=== PATIENT | male | born 1945 | race Caucasian/White ===

== ENCOUNTER 2017-04-01 15:47 | Inpatient (IN) | payer OTHER, SELFPAY ==
[~2017-04-01] VITALS: Ht 180.3 cm; Wt 89.4 kg
[~2017-04-01 15:47] MED LIST: ASPIRIN81 M2 PO; ATORVASTATIN CA40 MG PO; AZITHROMYCIN 2250 MG PO; BACTRIM DS TAB1 EACH PO; CARVEDILOL12.5 MG PO; CEFDINIR300 MG PO; FLAGYL500 MG PO; FLEXERIL PO; HYDROCHLOROTHIA25 M1 PO; LOPRESSOR50 PO; MINOCIN100 MG PO; PREDNISONE 10 M10 MG PO; PRINIVIL20 MG PO; SIMVASTATIN40 MG PO; TRAMADOL 50 MG50 MG PO; VENTOLIN HFA 1818 GM INH; ZESTORETIC 20-1 EAC3 PO
[2017-04-01 15:53] VITALS: BP 151/76
[2017-04-01 16:19] LABS: ABSOLUTE BASOPHILS 0.1 thou/uL (0.0-0.2); ABSOLUTE EOSINOPHILS 0.4 thou/uL (0.0-0.7); ABSOLUTE LYMPHOCYTES 2.2 thou/uL (0.8-5.3); ABSOLUTE MONOCYTES 1.1 thou/uL (0.0-1.2); ABSOLUTE NEUTROPHILS 7.8 thou/uL (1.6-8.1); BASOPHILS 1.2 %; EOSINOPHILS 3.3 %; HEMATOCRIT 40.8 % (42.0-52.0); HEMOGLOBIN 13.4 gm/dL (14.0-18.0); LYMPHOCYTES 18.7 %; MCH 30.7 pg (26.0-34.0); MCHC 32.7 g/dL (28.0-37.0); MCV 93.9 fL (80.0-100.0); MONOCYTES 9.7 %; MPV 8.6 fl. (7.2-11.1); NUCLEATED RBCS 0 /100WBC; PLATELET COUNT* 282 thou/uL (150-400); POLYS 67.1 %; RBC 4.35 mil/uL (4.50-6.00); RDW-CV 13.2 % (10.5-14.5); WBC 11.6 thou/uL (4.0-11.0)
[2017-04-01 16:28] LABS: ANION GAP 2 mmol/L (7-16); APTT 27.3 Seconds (25.0-31.3); BUN 21 mg/dL (7-18); CALCIUM 9.5 mg/dL (8.5-10.1); CHLORIDE 104 mmol/L (98-107); CO2 38 mmol/L (21-32); CREATININE 0.8 mg/dL (0.6-1.3); GLUCOSE 111 mg/dL (70-99); INR 1.1; POTASSIUM 3.8 mmol/L (3.5-5.1); PROTIME 10.7 Seconds (9.20-11.50); SODIUM 144 mmol/L (136-145)
[2017-04-01 16:39] LABS: ALBUMIN 3.3 g/dL (3.4-5.0); ALKALINE PHOSPHATASE 61 U/L (46-116); LIPASE 195 U/L (73-393); MAGNESIUM 1.8 mg/dL (1.8-2.4); NT-PRO BRAIN NAT PEPTIDE 178 pg/mL (<300); SGOT 35 U/L (15-37); SGPT 39 U/L (30-65); TOTAL BILIRUBIN 0.3 mg/dL (<0.1-1.0); TOTAL PROTEIN 6.9 g/dL (6.4-8.2); TROPONIN-I LEVEL <0.06 ng/mL (<0.06)
[2017-04-01 17:25] VITALS: BP 138/69
[2017-04-01 17:30] VITALS: BP 160/59
[2017-04-02 00:04] VITALS: BP 112/48
[2017-04-02 03:56] VITALS: BP 133/67
[2017-04-02 04:20] LABS: HEMATOCRIT 40.4 % (42.0-52.0); HEMOGLOBIN 13.6 gm/dL (14.0-18.0); MCH 31.6 pg (26.0-34.0); MCHC 33.7 g/dL (28.0-37.0); MCV 93.7 fL (80.0-100.0); NUCLEATED RBCS 0 /100WBC; PLATELET COUNT* 272 thou/uL (150-400); RBC 4.31 mil/uL (4.50-6.00); RDW-CV 13.1 % (10.5-14.5); WBC 8.9 thou/uL (4.0-11.0)
[2017-04-02 04:32] LABS: CALCIUM 9.1 mg/dL (8.5-10.1); CREATININE 0.8 mg/dL (0.6-1.3); POTASSIUM 4.5 mmol/L (3.5-5.1)
--- NOTE | 2017-04-02 05:35 | NUR ---
PATIENT SLEPT WELL DURING THIS SHIFT. PT UP TO BATHROOM WITH SLOW STEADY GAIT. PT WEARS O2 @ 2 LITERS PER NASAL CANNULA. PT WITH SALINE LOCK IN RT AC. PT IN NORMAL SINUS ON STOCK CRANE OPERATOR. PT DENIES PAIN ON THIS SHIFT. FREQUENTLY USED ITEMS AND CALL LIGHT WITHIN REACH. SIDERAILS UPX2. WILL CONTINUE TO MONITOR.
[2017-04-02 06:05] LABS: ABSOLUTE LYMPHOCYTES 1.1 thou/uL (0.8-5.3); ABSOLUTE MONOCYTES 0.1 thou/uL (0.0-1.2); ABSOLUTE NEUTROPHILS 7.7 thou/uL (1.6-8.1); LARGE PLATELETS OCCASIONAL; PLATELET ESTIMATE ADEQUATE
[2017-04-02 08:00] VITALS: BP 160/69
[2017-04-02 12:09] VITALS: BP 125/66
--- NOTE | 2017-04-02 12:11 | EKG ---
[place] [address] ELECTROCARDIOGRAM REPORT Name: LYDIA DAY Room: [address] ADM IN .R.#: [id number] Admission: 04/01/17 Attend Phys: Sveta Crystal Discharge: Date of : 41 Report #: [id number] THIS REPORT FOR: //name// [facility] ED Test Date: 2017-04-01 Test Time: 16:15:22 Pat Name: LYDIA DAY Department: Room: [facility] Gender: M Crimper Assembler: LEXUS : 1945 Requested By: Deep Rubio Order Number: [id number] MD: Arik Harris Measurements Intervals [place] Rate: 64 P: 15 AL: 198 QRS: -45 QRSD: 101 T: 60 QT: 401 QTc: 414 Interpretive Statements Sinus rhythm Left anterior fascicular block Anteroseptal infarct, age indeterminate ST elevation, consider inferior injury Lateral leads are also involved Compared to ECG 12/16/2016 17:20:48 Myocardial infarct finding now present Sinus bradycardia no longer present ST (T wave) deviation still present Electronically Signed On 04-02-2017 12:11:02 AUTOMOBILE LIGHTS ASSEMBLER by Arik Harris [email or web address] <ELECTRONICALLY SIGNED> By: Arik Harris MD, FACC 04/02/17 1211 1615 1615 Arik Harris MD, [facility] /EPI
--- NOTE | 2017-04-02 12:11 | EKG ---
[place] [address] ELECTROCARDIOGRAM REPORT Name: LYDIA DAY Room: [address] ADM IN .R.#: [id number] Admission: 04/01/17 Attend Phys: Sveta Crystal Discharge: Date of : 41 Report #: [id number] THIS REPORT FOR: //name// [facility] ED Test Date: 2017-04-01 Test Time: 15:53:36 Pat Name: LYDIA DAY Department: Room: [facility] Gender: M Solid Tire Finisher: SHAW : 1945 Requested By: Deep Rubio Order Number: [id number] MD: Arik Harris Measurements Intervals [place] Rate: 67 P: 10 FL: 219 QRS: -46 QRSD: 99 T: 60 QT: 390 QTc: 412 Interpretive Statements Sinus rhythm Borderline prolonged FL interval Left anterior fascicular block ST elevation, consider inferior injury Compared to ECG 12/16/2016 17:20:48 Myocardial infarct finding now present Sinus bradycardia no longer present ST (T wave) deviation still present Electronically Signed On 04-02-2017 12:10:47 HOUSING ASSISTANT by Arik Harris [email or web address] <ELECTRONICALLY SIGNED> By: Airk Harris MD, FACC 04/02/17 1210 1553 1553 Arik Harris MD, FAC /EPI
[2017-04-02 16:00] VITALS: BP 122/59
[2017-04-03 00:28] VITALS: BP 131/57
[2017-04-03 04:03] VITALS: BP 142/69
[2017-04-03 05:11] LABS: HEMATOCRIT 38.1 % (42.0-52.0); HEMOGLOBIN 12.8 gm/dL (14.0-18.0); MCH 31.5 pg (26.0-34.0); MCHC 33.7 g/dL (28.0-37.0); MCV 93.5 fL (80.0-100.0); MPV 9.4 fl. (7.2-11.1); NUCLEATED RBCS 0 /100WBC; PLATELET COUNT* 288 thou/uL (150-400); RBC 4.07 mil/uL (4.50-6.00); RDW-CV 13.1 % (10.5-14.5)
[2017-04-03 05:28] LABS: CALCIUM 8.9 mg/dL (8.5-10.1); POTASSIUM 4.5 mmol/L (3.5-5.1)
[2017-04-03 06:17] LABS: WBC 24.1 thou/uL (4.0-11.0)
[2017-04-03 07:01] LABS: ABSOLUTE LYMPHOCYTES 1.7 thou/uL (0.8-5.3); ABSOLUTE MONOCYTES 0.5 thou/uL (0.0-1.2); ABSOLUTE NEUTROPHILS 21.9 thou/uL (1.6-8.1); PLATELET ESTIMATE ADEQUATE
[2017-04-03 11:40] VITALS: BP 124/55
[2017-04-03 15:00] VITALS: BP 123/46
--- NOTE | 2017-04-03 18:56 | NUR ---
OXYGEN INCREASED TO 4LNC TO KEEP SATS ABOVE 90%. BRET IV BOLUS AND IV ABT WITHOUT ADR. UP AD KUMAR, DENIES DISCOMFORT, COMPLIANT WITH CARE, XR CHEST COMPLETE, CALL LIGHT IN REACH, CONT POC.
[2017-04-04] VITALS: BP 139/97
[2017-04-04 05:49] LABS: ABSOLUTE MONOCYTES 1.1 thou/uL (0.0-1.2); ABSOLUTE NEUTROPHILS 22.9 thou/uL (1.6-8.1); HEMATOCRIT 36.9 % (42.0-52.0); HEMOGLOBIN 12.3 gm/dL (14.0-18.0); MCH 31.4 pg (26.0-34.0); MCHC 33.4 g/dL (28.0-37.0); MONOCYTES 4.5 %; MPV 9.1 fl. (7.2-11.1); NUCLEATED RBCS 0 /100WBC; PLATELET COUNT* 283 thou/uL (150-400); POLYS 91.5 %; RBC 3.92 mil/uL (4.50-6.00); RDW-CV 13.1 % (10.5-14.5)
[2017-04-04 06:01] LABS: CALCIUM 8.4 mg/dL (8.5-10.1); CREATININE 0.9 mg/dL (0.6-1.3); POTASSIUM 3.7 mmol/L (3.5-5.1)
[2017-04-04 10:00] VITALS: BP 134/62
[2017-04-04 13:19] VITALS: BP 134/62
[2017-04-04] MEDS ORDERED: PREDNISONE 10 M10 MG PO (13:30)
[2017-04-04] MEDS ORDERED: AZITHROMYCIN 2250 MG PO (13:31)
[2017-04-04] MEDS ORDERED: CEFDINIR300 MG PO (13:38)
--- NOTE | 2017-04-04 14:04 | NUR ---
SW met with pt to complete initial assessment, introduce self, and SW role, as well as discuss dc planning/home situation. Pt anticipates being able to dc home with his . Pt alert and oriented, pleasant. Pt has oxygen and CPAP through [employer]. Pt did not express any other dc needs or have any questions or concerns at this time.
--- NOTE | 2017-04-04 14:42 | NUR ---
PATIENT GIVEN DISCHARGE INSTRUCTIONS AND PRESCRIPTIONS AT THIS TIME. PATIENT'S IV REMOVED AND DESULPHURIZER OPERATOR REMOVED. PATIENT AND SPOUSE VERBALIZED UNDERSTANDING IN REGARDS TO NEW MEDICATIONS AND FOLLOW UP CARE. PATIENT ESCORTED OFF NURSING UNIT VIA WHEELCHAIR WITH ALL BELONGINGS.
== END 2017-04-04 14:45 | disposition home or self-care (01) | DRG 871 ==
LOC: M.ERS 15:47 → M.3W 16:35 → M.TBA-ER 16:35 → M.3W 17:20
PROVIDERS: Family Medicine; ADMIT Internal Medicine
DX: A41.9 Sepsis, unspecified organism (principal); J15.9 Unspecified bacterial pneumonia; J96.20 Acute and chronic respiratory failure, unspecified whether with hypoxia or hypercapnia; J44.1 Chronic obstructive pulmonary disease with (acute) exacerbation; J44.0 Chronic obstructive pulmonary disease with (acute) lower respiratory infection; I25.10 Atherosclerotic heart disease of native coronary artery without angina pectoris; I10 Essential (primary) hypertension; E78.5 Hyperlipidemia, unspecified; Z79.899 Other long term (current) drug therapy; Z95.1 Presence of aortocoronary bypass graft; Z87.891 Personal history of nicotine dependence

== ENCOUNTER 2018-05-29 17:40 | Inpatient (IN) | payer OTHER ==
[~2018-05-29] VITALS: Ht 180.3 cm; Wt 88.9 kg
[~2018-05-29 17:40] MED LIST changes: +IPRAT-ALBUT 0.5-3 ML INH; +PREDNISONE10 MG PO; +PROTONIX40 M1 PO
[2018-05-29 17:44] VITALS: BP 170/79
[2018-05-29 17:55] LABS: ABSOLUTE BASOPHILS 0.1 thou/uL (0.0-0.2); ABSOLUTE EOSINOPHILS 0.4 thou/uL (0.0-0.7); ABSOLUTE MONOCYTES 1.7 thou/uL (0.0-1.2); ABSOLUTE NEUTROPHILS 4.8 thou/uL (1.6-8.1); BASOPHILS 1.2 %; HEMATOCRIT 42.4 % (42.0-52.0); HEMOGLOBIN 14.3 gm/dL (14.0-18.0); LYMPHOCYTES 22.5 %; MCH 31.7 pg (26.0-34.0); MCHC 33.8 g/dL (28.0-37.0); MCV 93.6 fL (80.0-100.0); MONOCYTES 19.1 %; MPV 9.5 fl. (7.2-11.1); NUCLEATED RBCS 0 /100WBC; PLATELET COUNT* 215 thou/uL (150-400); POLYS 53.2 %; RBC 4.53 mil/uL (4.50-6.00); RDW-CV 14.3 % (10.5-14.5)
[2018-05-29] MEDS ORDERED: UNICOMPLEX M TA1 TA1 PO (18:05)
[2018-05-29] MEDS ORDERED: OXYGEN MISCELL (18:06)
[2018-05-29 18:11] LABS: ALBUMIN 3.6 g/dL (3.4-5.0); ALKALINE PHOSPHATASE 69 U/L (46-116); ANION GAP 5 mmol/L (7-16); BUN 19 mg/dL (7-18); CALCIUM 9.1 mg/dL (8.5-10.1); CHLORIDE 105 mmol/L (98-107); CO2 34 mmol/L (21-32); CREATININE 1.1 mg/dL (0.6-1.3); GLUCOSE 98 mg/dL (70-99); POTASSIUM 3.9 mmol/L (3.5-5.1); SGOT 45 U/L (15-37); SGPT 41 U/L (30-65); SODIUM 144 mmol/L (136-145); TOTAL BILIRUBIN 0.3 mg/dL (<0.1-1.0); TOTAL PROTEIN 6.7 g/dL (6.4-8.2); TROPONIN-I LEVEL <0.06 ng/mL (<0.06)
[2018-05-29 18:27] LABS: PROTIME 10.7 Seconds (9.20-11.50)
[2018-05-29 19:04] LABS: INFLUENZA A ANTIGEN None Detected (None Detect); INFLUENZA B ANTIGEN None Detected (None Detect)
[2018-05-29 23:42] VITALS: BP 126/75
[2018-05-30 00:23] VITALS: BP 137/81
--- NOTE | 2018-05-30 00:50 | NUR ---
PT RECEIVED FROM ED AT IN. ALERT AND ORIENTED X4. CALL LIGHT WITHIN REACH AND BED IN LOW POSITION. SAT MAINTAINED IN 2L NC. DENIES PAIN AT THIS MOMENT.
[2018-05-30 04:00] VITALS: BP 129/54
[2018-05-30 08:00] VITALS: BP 138/65
--- NOTE | 2018-05-30 09:09 | NUR ---
ASSUMED CARE OF PT AT 0730. PT RESTING IN BED. PT A&0X4, DENIES ANY PAIN OR SHORTNESS OF BREATH AT THIS TIME OR DIZZINESS. PT TRACING SB ON THE SCIENTIST ENGINEER. RATE IN THE UPPER 50'S. PT ON 2L NC SAT 93%. PT UP AD KUMAR IN ROOM. PT NPO AT THIS TIME FOR CARDIOLOGY CONSULT. PT GOAL FOR TODAY IS TO REMAIN FREE FROM CHEST PAIN AND DIZZINESS, BE SEEN BY CARDIOLOGY AND MONITOR HEART RATE AND RHYTHM. AM ASSESSMENT CHARTED. MEDICATIONS PER APR. PT REPOSITIONS SELF. HOURLY ROUNDING OBSERVED. BED IN LOW POSITION. CALL LIGHT WITHIN REACH. WILL CONTINUE PLAN OF CARE.
[2018-05-30 11:23] VITALS: BP 138/65
[2018-05-30] MEDS ORDERED: CEFDINIR300 MG PO (11:54)
--- NOTE | 2018-05-30 12:13 | 2DMMODE ---
[place] [address] 2 D/M-MODE ECHOCARDIOGRAM Name: LYDIA DAY Room: [address] IN [facility]#: [id number] Admission: 05/29/18 Attend Phys: Zena Sotomayor MD Discharge: Date of : 41 Date of Service: 05/30/18 1213 Report #: [id number] THIS REPORT FOR: //name// APPROVED REPORT Study performed: 05/30/2018 09:47:33 EXAM: Comprehensive 2D, Doppler, and color-flow Echocardiogram Patient Location: In-Patient Room #: [facility] Status: routine BSA: 2.09 HR: 71 bpm BP: 138/65 mmHg Rhythm: NSR Other Information Study Quality: Good Indications Dyspnea 2D Dimensions IVSd: 11.66 (7-11mm) LVOT Diam: 22.44 (18-24mm) LVDd: 50.39 mm PWd: 10.59 (7-11mm) Ascending Ao: 38.31 (22-36mm) LVDs: 29.85 (25-40mm) Aortic Root: 38.63 mm Volumes Left Atrial Volume (Systole) LA ESV Index: 28.80 mL/m2 Aortic Valve AoV Peak Rayray.: 1.32 m/s AO Peak Gr.: 6.97 mmHg LVOT Max P.90 mmHg AO Mean Gr.: 3.66 mmHg LVOT Mean P.48 mmHg LVOT Max V: 1.21 m/s AO V2 VTI: 29.45 cm LVOT Mean V: 0.71 m/s LEON (VTI): 3.57 cm2 LVOT V1 VTI: 26.56 cm Mitral Valve E/A Ratio: 0.95 MV Decel. Time: 294.22 ms MV E Max Rayray.: 0.97 m/[place] [address] 2 D/M-MODE ECHOCARDIOGRAM Name: LYDIA DAY Room: [address] IN [facility].#: [id number] Admission: 05/29/18 Attend Phys: Zena Sotomayor MD Discharge: Date of : 41 Date of Service: 05/30/18 1213 Report #: [id number] MV PHT: 85.32 ms MVA (PHT): 2.58 cm2 TDI E/Lateral E': 6.06 E/Medial E': 8.82 Medial E' Rayray.: 0.11 m/s Lateral E' Rayray.: 0.16 m/s Pulmonary Valve PV Peak Rayray.: 1.10 m/s PV Peak Gr.: 4.87 mmHg Tricuspid Valve RAP Estimate: 5.00 mmHg TR Peak Gr.: 26.10 mmHg RVSP: 31.00 mmHg PA Pressure: 31.00 mmHg Left Ventricle The left ventricle is normal size. There is normal LV segmental wall motion. There is normal left ventricular wall thickness. Left ventricular systolic function is normal. The left ventricular ejection fraction is within the normal range. LVEF is >55%. Grade I - abnormal relaxation pattern. Right Ventricle The right ventricle is normal size. The right ventricular systolic function is normal. Atria The left atrium size is normal. The right atrium size is normal. Aortic Valve Mild aortic valve sclerosis. Trace aortic regurgitation. There is no aortic valvular stenosis. Mitral Valve The mitral valve is normal in structure. Trace mitral regurgitation. No evidence of mitral valve stenosis. Tricuspid Valve The tricuspid valve is normal in structure. Trace tricuspid regurgitation. Mild pulmonary hypertension. Pulmonic Valve The pulmonary valve is normal in structure. There is no pulmonic [place] [address] 2 D/M-MODE ECHOCARDIOGRAM Name: LYDIA DAY Room: [address]#: [id number] Admission: 05/29/18 Attend Phys: Zena Sotomayor MD Discharge: Date of : 41 Date of Service: 05/30/18 1213 Report #: [id number] Great Vessels The aortic root is normal in size. IVC is normal in size and collapses >50% with inspiration. Pericardium There is no pericardial effusion. <Conclusion> LVEF is >55%. There is normal LV segmental wall motion. Grade I - abnormal relaxation pattern. Mild aortic valve sclerosis. There is no aortic valvular stenosis. Trace aortic regurgitation. Trace mitral regurgitation. No evidence of mitral valve stenosis. <ELECTRONICALLY SIGNED> By: Arik Harris MD, FACC 05/30/18 1213 121 121 Arik Harris MD, FACC /INF
[2018-05-30 12:23] VITALS: BP 117/58
--- NOTE | 2018-05-30 13:05 | NUR ---
DISCHARGE ORDERS RECEIVED. DISCHARGE INSTRUCTIONS, CARE NOTES, SCRIPTS AND FOLLOW UP APPTS GIVEN TO PT. PT COMMUNICATES UNDERSTANDING OF DISCHARGE TEACHING. IV AND DRAW OPERATOR REMOVED. PT DISCHARGED WITH ALL BELONGINGS AND PAPERWORK VIA WHEELCHAIR WITH NURSING STAFF TO SPOUSE OWN PERSONAL VEHICLE.
--- NOTE | 2018-05-30 15:05 | EKG ---
[place] [address] ELECTROCARDIOGRAM REPORT Name: LYDIA DAY Room: [address] DIS IN M.R.#: [id number] Admission: 05/29/18 Attend Phys: Zena Sotomayor MD Discharge: 05/30/18 Date of : 41 Report #: [id number] THIS REPORT FOR: //name// [facility] ED Test Date: 2018-05-29 Test Time: 17:46:29 Pat Name: LYDIA DAY Department: Room: [address] Gender: M Cinder Pitman: TATI : 1945 Requested By: Gretta Lujan Order Number: [id number] Reading MD: Arik Harris Measurements Intervals [place] Rate: 78 P: 64 HI: 202 QRS: -52 QRSD: 114 T: 52 QT: 412 QTc: 470 Interpretive Statements Sinus rhythm Ventricular bigeminy Probable left atrial enlargement Left anterior fascicular block Anteroseptal infarct, age indeterminate Baseline wander in lead(s) V1,V2 Compared to ECG 03/01/2018 18:25:30 Ventricular premature complex(es) now present ST (T wave) deviation no longer present Myocardial infarct finding still present Electronically Signed On 05-30-2018 15:05:32 CDT by Arik Harris [email or web address] <ELECTRONICALLY SIGNED> By: Arik Harris MD, FAC 05/30/18 1505 1746 1746 Arik Harris MD, [facility] /EPI
--- NOTE | 2018-05-30 15:06 | EKG ---
[place] [address] ELECTROCARDIOGRAM REPORT Name: LYDIA DAY Room: [address] IN M.R.#: [id number] Admission: 05/29/18 Attend Phys: Zena Sotomayor MD Discharge: 05/30/18 Date of : 41 Report #: [id number] THIS REPORT FOR: //name// [facility] ED Test Date: 2018-05-29 Test Time: 17:47:31 Pat Name: LYDIA DAY Department: Room: [facility] Gender: M Library Sales Consultant: TATI : 1945 Requested By: Gretta Lujan Order Number: [id number] MD: Arik Harris Measurements Intervals [place] Rate: 84 P: 59 TX: 197 QRS: -48 QRSD: 105 T: 54 QT: 409 QTc: 484 Interpretive Statements Sinus rhythm Ventricular bigeminy Left anterior fascicular block Anteroseptal infarct, age indeterminate Compared to ECG 03/01/2018 18:25:30 Ventricular premature complex(es) now present ST (T wave) deviation no longer present Myocardial infarct finding still present Electronically Signed On 05-30-2018 15:05:50 CDT by Arik Harris [email or web address] <ELECTRONICALLY SIGNED> By: Arik Harris MD, [facility] 05/30/18 1505 1747 1747 Arik Harris MD, [facility] /EPI
== END 2018-05-30 13:05 | disposition home or self-care (01) | DRG 202 ==
LOC: M.ERS 17:40 → M.TBA-ER 20:22 → M.2W 20:22
PROVIDERS: Personal Emergency Response Attendant; ADMIT Family Medicine
DX: J20.9 Acute bronchitis, unspecified (principal); J44.0 Chronic obstructive pulmonary disease with (acute) lower respiratory infection; J96.11 Chronic respiratory failure with hypoxia; J44.1 Chronic obstructive pulmonary disease with (acute) exacerbation; I25.10 Atherosclerotic heart disease of native coronary artery without angina pectoris; E78.5 Hyperlipidemia, unspecified; I10 Essential (primary) hypertension; G47.33 Obstructive sleep apnea (adult) (pediatric); I49.3 Ventricular premature depolarization; Z79.899 Other long term (current) drug therapy; Z79.82 Long term (current) use of aspirin; Z95.1 Presence of aortocoronary bypass graft; Z87.891 Personal history of nicotine dependence

== ENCOUNTER 2018-07-21 13:49 | Inpatient (IN) | payer OTHER ==
[~2018-07-21] VITALS: Ht 180.3 cm; Wt 76.7 kg
[~2018-07-21 13:49] MED LIST changes: +OXYGEN MISCELL; +UNICOMPLEX M TA1 TA1 PO
[2018-07-21 14:05] VITALS: BP 134/70
[2018-07-21 14:23] LABS: ABSOLUTE BASOPHILS 0.1 thou/uL (0.0-0.2); ABSOLUTE EOSINOPHILS 0.2 thou/uL (0.0-0.7); ABSOLUTE LYMPHOCYTES 1.4 thou/uL (0.8-5.3); ABSOLUTE MONOCYTES 1.6 thou/uL (0.0-1.2); ABSOLUTE NEUTROPHILS 15.4 thou/uL (1.6-8.1); BASOPHILS 0.5 %; HEMATOCRIT 41.9 % (42.0-52.0); HEMOGLOBIN 13.9 gm/dL (14.0-18.0); LYMPHOCYTES 7.7 %; MCH 31.2 pg (26.0-34.0); MCHC 33.2 g/dL (28.0-37.0); MCV 93.8 fL (80.0-100.0); MONOCYTES 8.7 %; MPV 9.6 fl. (7.2-11.1); NUCLEATED RBCS 0 /100WBC; PLATELET COUNT* 218 thou/uL (150-400); POLYS 82.1 %; RBC 4.46 mil/uL (4.50-6.00); RDW-CV 13.1 % (10.5-14.5); WBC 18.7 thou/uL (4.0-11.0)
[2018-07-21 14:31] LABS: CALCIUM 9.2 mg/dL (8.5-10.1); CREATININE 1.2 mg/dL (0.6-1.3); POTASSIUM 3.8 mmol/L (3.5-5.1)
[2018-07-21 14:42] LABS: ALBUMIN 3.1 g/dL (3.4-5.0); TOTAL BILIRUBIN 0.8 mg/dL (<0.1-1.0); TOTAL PROTEIN 6.9 g/dL (6.4-8.2); TROPONIN-I LEVEL 0.07 ng/mL (<0.06)
--- NOTE | 2018-07-21 15:26 | EKG ---
[place] [address] ELECTROCARDIOGRAM REPORT Name: SHAYLYDIA ALCANTAR Room: [place] [address] ADM IN .R.#: [id number] Admission: 07/21/18 Attend Phys: Jamey Hobson Discharge: Date of : 41 Report #: [id number] THIS REPORT FOR: //name// [facility] Test Date: 2018-07-21 Test Time: 14:02:28 Pat Name: LYDIA DAY Department: Room: [facility] Gender: M Railway Yard Assistant: ABIMAEL : 1945 Requested By: Piyush Paulson Order Number: [id number] MD: Chin Mcdermott Measurements Intervals [place] Rate: 100 P: NC: QRS: -41 QRSD: 102 T: 68 QT: 366 QTc: 473 Interpretive Statements Atrial fibrillation Ventricular bigeminy Left anterior fascicular block Compared to ECG 05/29/2018 17:47:31 Sinus rhythm no longer present Electronically Signed On 07-21-2018 15:25:50 CDT by Chin Mcdermott [email or web address] <ELECTRONICALLY SIGNED> By: Chin Mcdermott MD, [facility] 07/21/18 1525 1402 1402 Chin Mcdermott MD, [facility] /EPI
--- NOTE | 2018-07-21 15:50 | NUR ---
PT MASOOD [phone] IS LEAVING FOR THE NIGHT, WOULD LIKE CALLED WHEN PT GOES TO A ROOM.
[2018-07-21 17:25] VITALS: BP 105/72
[2018-07-21 17:45] VITALS: BP 97/75
--- NOTE | 2018-07-21 17:45 | NUR ---
ER ADMIT TO 224 VIA CART TELEPHONE REPORT GIVEN PATIENT SETTLED I BED AND ORIENTED TO AND CALL LIGHT VITAL SIGNS TAKEN AND DOCUMENTED DENIES PAIN
[2018-07-21 20:00] VITALS: BP 107/47
--- NOTE | 2018-07-21 20:58 | H ---
[place] [address] HISTORY AND PHYSICAL Name: SHAYLYDIA Sellers Room: [address] IN .R.#: [id number] Admission: 07/21/18 Attend Phys: Jamey Hobson Discharge: Date of : 41 Report #: [id number] THIS REPORT FOR: //name// CC: Sharon Granda DATE OF SERVICE: 07/21/2018 CHIEF COMPLAINT: Shortness of breath, fever and cough. HISTORY OF PRESENT ILLNESS: The patient is a 73-year-old gentleman who presented to us here complaining of fever, shortness of breath, and cough. The patient states that he has been having a coughing episode for 3 days. He has increasing shortness of breath and also had the fever. He uses oxygen 3 liters at home. Finally, came in as he was also having some swelling of his legs. He was then seen in the ER, noted to have CHF exacerbation and COPD exacerbation and being admitted for that. He did complain of some chest pain to me that just lasted for a few minutes earlier. He describes it as an achy feeling in the chest, it was not related to his coughing. He does have some abdominal pain from the coughing. PAST MEDICAL HISTORY: 1. CAD. 2. CABG. 4. Hypertension. 5. Hyperlipidemia. 6. COPD, collapsed lung. 7. Left shoulder, excision of lipoma. 8. Chronic hypoxic respiratory failure on 2 liters of oxygen at home. FAMILY HISTORY: Hypertension, diabetes and CAD. SOCIAL HISTORY: The patient lives with his . He smoked for about 10-15 years, 1 pack of cigarettes per day, but quit about 30 years ago. Denies any alcohol or drug use. ALLERGIES: None. HOME MEDICATIONS: Include atorvastatin 80 mg at bedtime, carvedilol 18.75 p.o. b.i.d., hydrochlorothiazide 25 daily, aspirin 81 daily, lisinopril 20 daily, prednisone 10 mg daily, ipratropium, albuterol as needed, multivitamins daily, cefdinir 300 b.i.d., oxygen at 2 liters. REVIEW OF SYSTEMS: The patient does have fever and chills and coughing. Did have some chest pain earlier and does have shortness of breath. Does have some nausea, no vomiting, no diarrhea. No burning, urgency and just feels weak. No rash. A 12-point review of system unremarkable except for mentioned above. PHYSICAL EXAMINATION: VITAL SIGNS: Temperature is 37.3, heart rate 94, respirations 29, blood pressure is 136/66, 94% on 3 [place] [address] HISTORY AND PHYSICAL Name: LYDIA DYA Room: [address] IN ..#: [id number] Admission: 07/21/18 Attend Phys: Jamey Hobson Discharge: Date of : 41 Report #: [id number] GENERAL: The patient is alert. He is oriented x 3. He is in mild respiratory distress, especially when he starts coughing. HEENT: Normocephalic, atraumatic. Nares patent. Clear oropharynx. NECK: Supple. No lymphadenopathy. CARDIOVASCULAR: Normal rate, but he does have irregular beat at times. RESPIRATORY: He has crackles on exam and wheezing. He is tachypneic. GASTROINTESTINAL: Abdomen is soft, nontender, nondistended, good bowel sounds. No organomegaly. GENITOURINARY: Deferred. MUSCULOSKELETAL: Fair strength. NEUROLOGIC: Grossly normal. PSYCHIATRIC: The patient is calm. LABORATORY DATA: Reviewed and CBC showed a white count of 18.7, hemoglobin 13.9, platelet is 218,000. No bands noted. Chemistry: Sodium 140, potassium 3.8, chloride is 102, carbon dioxide 29, anion gap is 9, BUN 38, creatinine is 1.2, glucose 110. Lactic acid is 1.4. Calcium is 9.2, total bilirubin is 0.8, AST 33, ALT 31, alkaline phosphatase 67, CK is 102. Troponin is 0.07, total protein 6.9, albumin is 3.1. BNP is 1846. Imaging shows chest x-ray, right lower lobe infiltrate, increased from the previous study. EKG shows AFib with bigeminy and left anterior fascicular block. IMPRESSION: The patient is a 73-year-old gentleman who presented to us here complaining of fevers, chills and coughing. He does have 1. Pneumonia. He has some chronic hypoxic respiratory on baseline oxygen. 2. Chest pain with mild troponin elevation, possibly non-STEMI type 2. 3. Ventricular bigeminy. 4. New onset atrial fibrillation, history of CAD status post CABG in the past, COPD and COPD exacerbation, known hyperlipidemia, known hypertension, history of collapsed lung in the past. 5. Sepsis secondary to pneumonia. PLAN: The patient will be admitted. I expect this patient is going to be here more than 2 midnights. We will put him on neb treatment, antibiotic and steroids. He has been given Zithromax and Rocephin. We will continue that. We will do serial troponin. We will ask cardiology to see. We will continue the patient's home medications and we will follow labs in the morning. The plan discussed with the patient regarding code status and he wants to be a do not resuscitate. Again, we will consult Cardiology. He was told that then they with put pacemaker on him. <ELECTRONICALLY SIGNED> By: Valarie Granda MD 07/21/188 1619 1926Valarie Granda MD /nt
[2018-07-22] VITALS (7 sets, daily range): BP systolic 102–135; BP diastolic 52–78
[2018-07-22 05:06] LABS: HEMATOCRIT 40.6 % (42.0-52.0); HEMOGLOBIN 13.8 gm/dL (14.0-18.0); MCH 31.9 pg (26.0-34.0); MCHC 34.1 g/dL (28.0-37.0); MCV 93.6 fL (80.0-100.0); MPV 9.9 fl. (7.2-11.1); RBC 4.33 mil/uL (4.50-6.00); RDW-CV 13.4 % (10.5-14.5); WBC 10.8 thou/uL (4.0-11.0)
[2018-07-22 06:28] LABS: CALCIUM 8.9 mg/dL (8.5-10.1); CREATININE 1.3 mg/dL (0.6-1.3); MAGNESIUM 2.2 mg/dL (1.8-2.4); POTASSIUM 3.8 mmol/L (3.5-5.1)
[2018-07-22 06:30] LABS: CHOLESTEROL 148 mg/dL (<200); HDL CHOLESTEROL 39 mg/dL (>40); LDL CHOLESTEROL 95 mg/dL (<100); TC:HDL 3.8 Ratio (Not establshd); TRIGLYCERIDE 74 mg/dL (<150); VLDL 15 mg/dL (<40)
[2018-07-22 06:34] LABS: SERUM ASSESSMENT Clear
--- NOTE | 2018-07-22 17:25 | NUR ---
PT UP IN CHAIR WITH SB ASSIST. REPOSITIONS SELF WELL WHILE IN BED. TOLERATING PO WELL. AFIB ON MONITOR. PT DENIES CP OR SOA. O2@3L NC WHICH IS PT'S HOME USE.
[2018-07-23 04:00] VITALS: BP 119/60
--- NOTE | 2018-07-23 04:32 | NUR ---
PT ALERT ORIENTED. UP WITH ONE PERSON ASSIST. TELEMETRY SHOWS AFIB WITH PVCS. O2 AT 3 LITERS NC. DENIES PAIN.
[2018-07-23 05:09] LABS: HEMATOCRIT 41.5 % (42.0-52.0); HEMOGLOBIN 13.9 gm/dL (14.0-18.0); MCH 31.1 pg (26.0-34.0); MCHC 33.5 g/dL (28.0-37.0); MCV 93.1 fL (80.0-100.0); MPV 9.4 fl. (7.2-11.1); RBC 4.46 mil/uL (4.50-6.00); WBC 18.7 thou/uL (4.0-11.0)
[2018-07-23 05:19] LABS: CALCIUM 9.2 mg/dL (8.5-10.1); CREATININE 1.3 mg/dL (0.6-1.3); MAGNESIUM 2.2 mg/dL (1.8-2.4); POTASSIUM 3.5 mmol/L (3.5-5.1)
[2018-07-23 08:00] VITALS: BP 129/71
[2018-07-23 12:00] VITALS: BP 107/54
[2018-07-23 16:00] VITALS: BP 100/48
--- NOTE | 2018-07-23 16:31 | NUR ---
RECEIVED REPORT FROM MACEY GERMAN IN [facility]. PT TRANSFERED TO TELE FLOOR AROUND 1045, ASSUMED CARE. VSS. CARDIAC MONINTOR PLACED TRACING SR/ST WITH PVC'S. THIS RN HAS REVIEWED AND AGREES WITH ASSESSMENT AND CHARTING OF MACEY GERMAN. PT REMAINING ON 3L PER NC - O2 SAT >90%. TRACE BLE EDEMA NOTED, LEFT MORE THAN RIGHT. PT STEADY ON FEET, UP AD KUMAR IN ROOM. VOIDING PER URINAL. NO BM THIS SHIFT SO FAR. PT SITTING IN BEDSIDE CHAIR WATCHING TV. LOW FALL RISK PRECAUTIONS IN PLACE. CALL LIGHT IS WITHIN REACH, HOURLY ROUNDING PERFORMED. WCTM FOR DURATION OF SHIFT.
--- NOTE | 2018-07-23 18:54 | NUR ---
RECEIVED REPORT FROM TAMAR GERMAN. ASSUMED CARE OF PT AROUND 0730. PT A&O X4, VSS. O2 SAT >90% ON 3L PER NC. ANODE WORKER IN PLACE TRACING AFIB WITH PVC'S WITH NO CHANGES THIS SHIFT. NEW IV STARTED TO LEFT FA. MEDS PER EMAR. PT DIURESING WELL. TOLERATING DIET. PT HOPEFUL TO GO HOME TOMORROW. PT HAS DENIED PAIN OR DISCOMFORT THIS SHIFT. PT CURRENTLY RESTING IN BED. CALL LIGHT IS WITHIN REACH. HOURLY ROUNDING PERFORMED. FALL PRECAUTIONS IN PLACE.
[2018-07-23 20:00] VITALS: BP 130/70
[2018-07-24] VITALS: BP 89/40
[2018-07-24 04:00] VITALS: BP 108/60
[2018-07-24 05:25] LABS: HEMOGLOBIN 13.6 gm/dL (14.0-18.0); MCH 31.9 pg (26.0-34.0); MCHC 34.8 g/dL (28.0-37.0); MCV 91.9 fL (80.0-100.0); MPV 9.4 fl. (7.2-11.1); RBC 4.25 mil/uL (4.50-6.00); RDW-CV 13.3 % (10.5-14.5); WBC 19.3 thou/uL (4.0-11.0)
[2018-07-24 05:37] LABS: CREATININE 1.5 mg/dL (0.6-1.3); MAGNESIUM 1.9 mg/dL (1.8-2.4); POTASSIUM 3.7 mmol/L (3.5-5.1)
--- NOTE | 2018-07-24 05:57 | NUR ---
ASSUMED PATIENT CARE AT 1900. PATIENT ALERT AND ORIENTED TIMES FOUR. NO COMPLAINTS OF PAIN OR DISCOMFORT NOTED. REMAINS ON O2 AT 3L. PATIENT HEART RATE KENDRA DOWN INTO THE 30'S SEVERAL TIMES THROUGH THE NIGHT. STATES THAT HE RECENTLY WORE A HALTER MONITOR FOR 30 DAYS AND IS IN THE PROCESS OF THE DATA BEING EVALUATED FOR PACEMAKER PLACEMENT. HOURLY ROUNDING AND INTEGRITY SPECIALIST COMPETED CHARTED
[2018-07-24 08:00] VITALS: BP 118/70
[2018-07-24] MEDS ORDERED: LASIX 40 MG TAB40 M1 PO (11:06)
[2018-07-24] MEDS ORDERED: ELIQUIS5 MG PO (11:06)
[2018-07-24] MEDS ORDERED: AZITHROMYCIN 2250 MG PO (11:06)
[2018-07-24] MEDS ORDERED: COZAAR 50 MG TA50 M1 PO (11:06)
[2018-07-24] MEDS ORDERED: PREDNISONE10 MG PO (11:06)
[2018-07-24] MEDS ORDERED: MUCINEX600 MG PO (11:06)
[2018-07-24] MEDS ORDERED: TOPROL XL100 MG PO (11:06)
--- NOTE | 2018-07-24 11:08 | NUR ---
RECEIVED REPORT FROM AUNDREA AND ASSUMED CARE OF PT @ 1897.PT IS A/O X4,VSS,TRACING AFIB ON THE MONITOR.IV PATENT AND SALINE LOCKED.PT IS CALM AND COOPERATIVE WITH NO C/O PAIN.PT LEFT RESTING IN BED WITH CALL LIGHT WITHIN REACH.WILL CONTINUE TO MONITOR.
[2018-07-24 11:53] VITALS: BP 119/68
[2018-07-24] MEDS ORDERED: KLOR-CON 1010 MEQ PO (13:48)
--- NOTE | 2018-07-24 14:30 | NUR ---
PT OK FOR DISCHARGE.DISCHARGE PAPERWORK COMPLETED AND GIVEN TO PT.IV REMOVED.HEART MONITOR REMOVED AND RETURNED TO THE NURSING STATION.SCRIPTS GIVEN [facility] EDUCATION.PT INFORMATION FAXED TO CARDIOLOGY OFFICE FOR THEM TO SCHEDULE HF FOLLOW UP APPOINTMENT.ALL PERSONAL BELONGINGS PACKED AND TAKEN WITH PT.PT WHEELED OUT BY NURSING STAFF TO PERSONAL VEHICLE.
--- NOTE | 2018-07-25 08:38 | CON ---
[address] [address] CONSULTATION Name: LYDIA DAY Room: [address] IN M.R.#: [id number] Admission: 07/21/18 Attend Phys: Jamey Hobson Discharge: 07/24/18 Date of : 41 Report #: [id number] THIS REPORT FOR: //name// CC: Sharon Don DATE OF SERVICE: 07/21/2018 CARDIOLOGY CONSULTATION HISTORY OF PRESENT ILLNESS: This is a 73-year-old white male who I was asked to see in the hospital today after he complained of being short of breath. The history is obtained from the patient. The patient states that in 2005, he was having back pain while mowing the yard. He was found to have coronary artery disease. He was taken to [facility] and had 5-vessel coronary artery bypass surgery. He has done well from a heart standpoint since that time. Recently, he has been followed by my partner, Dr. Davis. He actually underwent a nuclear stress test in 2014 using Lexiscan that showed a focal fixed defect involving the distal inferoapical wall, consistent with previous infarction; ejection fraction 57%. The patient denies any recent chest pain. Recently, he has felt lightheaded. He saw my nurse practitioner. Apparently, he just turned in the 30-day event recorder. He has also had increasing shortness of breath. He does have COPD. He is on CPAP at home, uses an aerosol machine. He has been coughing and noticed some edema. He finally came to the Emergency Room today and was admitted for further evaluation and treatment. He denies any chest or back pain. He denies any palpitations or syncope. PAST MEDICAL HISTORY: He has had shoulder surgery. He has a history of hypertension and hyperlipidemia. MEDICATIONS: Include lisinopril and Lipitor. ALLERGIES: He has no known drug allergies. FAMILY HISTORY: Positive for heart disease. SOCIAL HISTORY: He is . He and his live in [place]. He still works in a factory. He quit smoking years ago. No alcohol abuse. REVIEW OF SYSTEMS: He has had no history of stroke. He does have COPD. No history of peptic ulcer disease, liver disease, kidney disease, cancer, psychiatric illness or chronic skin condition. PHYSICAL EXAMINATION: [place] [address] CONSULTATION Name: LYDIA DAY Room: [address]#: [id number] Admission: 07/21/18 Attend Phys: Jamey Hobson Discharge: 07/24/18 Date of : 41 Report #: [id number] GENERAL: Revealed an elderly male, who appeared in no acute distress. VITAL SIGNS: He had a blood pressure of 130/70, pulse of 90. He was afebrile. HEENT: He was anicteric. Conjunctivae pink. Mucous membranes moist. NECK: Neck veins did not appear distended. No carotid bruits. Neck was supple. CHEST: There were coarse breath sounds bilaterally. CARDIAC EXAMINATION: Regular rate and rhythm. No murmur. ABDOMEN: Soft. EXTREMITIES: Had trace edema. Dorsalis pedis pulse 2+ in the right, could not be palpable in the left. SKIN: Cool and dry. NEUROLOGICAL EXAMINATION: Nonfocal. LYMPH EXAMINATION: No adenopathy. MUSCULOSKELETAL EXAMINATION: No joint effusion. DIAGNOSTIC DATA: His ECG today shows sinus rhythm, frequent PVCs and left axis deviation, but no significant ST or T-wave changes were noted. His workup, he actually had an echocardiogram, 05/29 of this year, that showed ejection fraction greater than 55%, mild aortic sclerosis. His workup in the Emergency Room today included a portable chest x-ray that showed normal heart size and hyperinflated lung kilpatrick, possible infiltrate. LABORATORY DATA: Sodium 140, creatinine 1.2. His liver function studies appear normal. Albumin is 3.1. Troponin 0.07. BNP 1846. White blood cell count 18.7, hemoglobin 13.9. IMPRESSION AND RECOMMENDATIONS: 1. Chronic obstructive pulmonary disease. 2. Coronary artery disease. Previous bypass surgery. No recurrent angina. We will continue an aspirin a day. 3. Hypertension. The patient is on an BETHANIE inhibitor. Because of his cough, we would consider switching to an ARB. 4. Hyperlipidemia. The patient is on a statin drug. 5. Premature ventricular contractions. <ELECTRONICALLY SIGNED> By: Chin Mcdermott MD, [facility] 07/25/18 0838 1707 [id number] Mcdermott MD, FACC /nt
== END 2018-07-24 14:44 | disposition home or self-care (01) | DRG 871 ==
LOC: M.ERS 13:49 → M.TBA-ER 15:02 → M.2W 15:02
PROVIDERS: Internal Medicine; Internal Medicine Cardiovascular Disease; Nurse Practitioner Family; ADMIT Internal Medicine
DX: A41.9 Sepsis, unspecified organism (principal); J15.6 Pneumonia due to other Gram-negative bacteria; I50.43 Acute on chronic combined systolic (congestive) and diastolic (congestive) heart failure; J96.11 Chronic respiratory failure with hypoxia; J44.1 Chronic obstructive pulmonary disease with (acute) exacerbation; J44.0 Chronic obstructive pulmonary disease with (acute) lower respiratory infection; I25.10 Atherosclerotic heart disease of native coronary artery without angina pectoris; I11.0 Hypertensive heart disease with heart failure; E78.5 Hyperlipidemia, unspecified; I48.91 Unspecified atrial fibrillation; I49.3 Ventricular premature depolarization; G47.33 Obstructive sleep apnea (adult) (pediatric); T50.905A Adverse effect of unspecified drugs, medicaments and biological substances, initial encounter; Y92.89 Other specified places as the place of occurrence of the external cause; Z95.1 Presence of aortocoronary bypass graft; Z87.891 Personal history of nicotine dependence; Z99.81 Dependence on supplemental oxygen; Z79.82 Long term (current) use of aspirin; Z79.899 Other long term (current) drug therapy; Z82.49 Family history of ischemic heart disease and other diseases of the circulatory system; Z83.3 Family history of diabetes mellitus

== ENCOUNTER 2018-08-25 09:54 | Inpatient (IN) | payer OTHER ==
[~2018-08-25] VITALS: Ht 180.3 cm; Wt 87.5 kg
[~2018-08-25 09:54] MED LIST changes: +COZAAR 50 MG TA50 M1 PO; +ELIQUIS5 MG PO; +KLOR-CON 1010 MEQ PO; +LASIX 40 MG TAB40 M1 PO; +MUCINEX600 MG PO; +TOPROL XL100 MG PO
[2018-08-25 10:02] VITALS: BP 131/66
[2018-08-25 10:27] LABS: ABSOLUTE BASOPHILS 0.1 thou/uL (0.0-0.2); ABSOLUTE EOSINOPHILS 0.1 thou/uL (0.0-0.7); ABSOLUTE LYMPHOCYTES 1.7 thou/uL (0.8-5.3); ABSOLUTE MONOCYTES 1.4 thou/uL (0.0-1.2); BASOPHILS 1.1 %; EOSINOPHILS 0.8 %; HEMATOCRIT 36.5 % (42.0-52.0); HEMOGLOBIN 12.1 gm/dL (14.0-18.0); LYMPHOCYTES 12.5 %; MCH 30.2 pg (26.0-34.0); MCHC 33.1 g/dL (28.0-37.0); MCV 91.2 fL (80.0-100.0); MONOCYTES 10.4 %; MPV 8.2 fl. (7.2-11.1); NUCLEATED RBCS 0 /100WBC; PLATELET COUNT* 354 thou/uL (150-400); POLYS 75.2 %; RDW-CV 13.8 % (10.5-14.5); WBC 13.3 thou/uL (4.0-11.0)
[2018-08-25 10:36] LABS: ANION GAP 10 mmol/L (7-16); BUN 19 mg/dL (7-18); CALCIUM 9.2 mg/dL (8.5-10.1); CHLORIDE 104 mmol/L (98-107); CO2 29 mmol/L (21-32); GLUCOSE 111 mg/dL (70-99); POTASSIUM 3.8 mmol/L (3.5-5.1); SODIUM 143 mmol/L (136-145)
[2018-08-25 10:47] LABS: ALBUMIN 2.5 g/dL (3.4-5.0); ALKALINE PHOSPHATASE 63 U/L (46-116); LIPASE 131 U/L (73-393); NT-PRO BRAIN NAT PEPTIDE 2377 pg/mL (<300); SGOT 52 U/L (15-37); SGPT 64 U/L (30-65); TOTAL BILIRUBIN 0.7 mg/dL (<0.1-1.0); TOTAL PROTEIN 6.9 g/dL (6.4-8.2); TROPONIN-I LEVEL <0.06 ng/mL (<0.06)
[2018-08-25 11:00] LABS: INR 1.2; PROTIME 12.2 Seconds (9.20-11.50)
[2018-08-25 14:23] VITALS: BP 144/79
[2018-08-25 14:35] VITALS: BP 130/78
--- NOTE | 2018-08-25 16:48 | EKG ---
[place] [address] ELECTROCARDIOGRAM REPORT Name: LYDIA DAY Room: [address] ADM IN M.R.#: [id number] Admission: 08/25/18 Attend Phys: Jamey Green Discharge: Date of : 41 Report #: [id number] THIS REPORT FOR: //name// [facility] ED Test Date: 2018-08-25 Test Time: 10:09:17 Pat Name: LYDIA DAY Department: Room: [facility] Gender: M Salon Professional: alanis : 1945 Requested By: Tom De Los Santos Order Number: [id number] MD: Arik Harris Measurements Intervals [place] Rate: 108 P: [place]: QRS: -38 QRSD: 96 T: 77 QT: 349 QTc: 468 Interpretive Statements Atrial fibrillation Ventricular bigeminy LVH with secondary repolarization abnormality Compared to ECG 07/21/2018 14:02:28 Left ventricular hypertrophy now present Early repolarization now present Left anterior fascicular block no longer present Electronically Signed On 08-25-2018 16:48:18 CDT by Arik Harris [email or web address] <ELECTRONICALLY SIGNED> By: Arik Harris MD, FACC 08/25/18 1648 1009 1009 Arik Harris MD, FAC /EPI
[2018-08-25 20:10] VITALS: BP 122/57
[2018-08-26] VITALS: BP 115/64
[2018-08-26 04:46] VITALS: BP 114/70
[2018-08-26 09:01] VITALS: BP 132/63
[2018-08-26 10:56] LABS: HEMATOCRIT 34.3 % (42.0-52.0); MCHC 32.2 g/dL (28.0-37.0); MCV 93.1 fL (80.0-100.0); MPV 8.6 fl. (7.2-11.1); NUCLEATED RBCS 0 /100WBC; PLATELET COUNT* 366 thou/uL (150-400); RBC 3.68 mil/uL (4.50-6.00); RDW-CV 13.9 % (10.5-14.5); WBC 17.4 thou/uL (4.0-11.0)
[2018-08-26 11:02] LABS: CALCIUM 8.8 mg/dL (8.5-10.1); CREATININE 1.1 mg/dL (0.6-1.3)
[2018-08-26 11:04] LABS: POTASSIUM 4.8 mmol/L (3.5-5.1)
[2018-08-26 11:27] LABS: ABSOLUTE LYMPHOCYTES 1.2 thou/uL (0.8-5.3); ABSOLUTE NEUTROPHILS 16.2 thou/uL (1.6-8.1)
[2018-08-26 11:28] LABS: PLATELET ESTIMATE ADEQUATE
[2018-08-26 12:00] VITALS: BP 110/63
[2018-08-26 16:00] VITALS: BP 94/62
[2018-08-26 20:00] VITALS: BP 116/62
[2018-08-27 00:30] VITALS: BP 106/49
[2018-08-27 04:05] VITALS: BP 104/55
[2018-08-27 05:06] LABS: ABSOLUTE BASOPHILS 0.1 thou/uL (0.0-0.2); ABSOLUTE LYMPHOCYTES 0.9 thou/uL (0.8-5.3); ABSOLUTE MONOCYTES 1.5 thou/uL (0.0-1.2); ABSOLUTE NEUTROPHILS 29.7 thou/uL (1.6-8.1); BASOPHILS 0.3 %; HEMATOCRIT 36.5 % (42.0-52.0); HEMOGLOBIN 11.6 gm/dL (14.0-18.0); LYMPHOCYTES 2.7 %; MCH 29.6 pg (26.0-34.0); MCHC 31.8 g/dL (28.0-37.0); MONOCYTES 4.7 %; MPV 8.2 fl. (7.2-11.1); NUCLEATED RBCS 0 /100WBC; POLYS 92.3 %; RBC 3.92 mil/uL (4.50-6.00); RDW-CV 14.1 % (10.5-14.5); WBC 32.2 thou/uL (4.0-11.0)
[2018-08-27 05:20] LABS: PLATELET COUNT* 494 thou/uL (150-400)
[2018-08-27 05:26] LABS: ALBUMIN 2.2 g/dL (3.4-5.0); CALCIUM 8.6 mg/dL (8.5-10.1); CREATININE 1.3 mg/dL (0.6-1.3); MAGNESIUM 2.1 mg/dL (1.8-2.4); PHOSPHORUS* 4.4 mg/dL (2.5-4.9); POTASSIUM 4.3 mmol/L (3.5-5.1); TOTAL BILIRUBIN 0.2 mg/dL (<0.1-1.0); TOTAL PROTEIN 6.3 g/dL (6.4-8.2)
[2018-08-27 08:27] VITALS: BP 113/60
[2018-08-27 13:39] VITALS: BP 107/55
[2018-08-27 16:06] VITALS: BP 114/55
[2018-08-27 19:50] VITALS: BP 127/49
[2018-08-28] VITALS (7 sets, daily range): BP systolic 93–140; BP diastolic 42–66
[2018-08-28 04:27] LABS: HEMATOCRIT 34.9 % (42.0-52.0); HEMOGLOBIN 11.2 gm/dL (14.0-18.0); MCH 29.9 pg (26.0-34.0); MCHC 32.2 g/dL (28.0-37.0); MPV 8.2 fl. (7.2-11.1); RBC 3.75 mil/uL (4.50-6.00); RDW-CV 14.1 % (10.5-14.5); WBC 26.7 thou/uL (4.0-11.0)
[2018-08-28 04:37] LABS: CALCIUM 8.7 mg/dL (8.5-10.1); CREATININE 1.4 mg/dL (0.6-1.3); POTASSIUM 4.4 mmol/L (3.5-5.1); TOTAL BILIRUBIN 0.2 mg/dL (<0.1-1.0); TOTAL PROTEIN 5.6 g/dL (6.4-8.2)
--- NOTE | 2018-08-28 08:38 | CON ---
[address] [address] CONSULTATION Name: LYDIA DAY Room: [address] IN M.R.#: [id number] Admission: 08/25/18 Attend Phys: Jamey Green Discharge: Date of : 41 Report #: [id number] THIS REPORT FOR: //name// CC: Sharon Jimenes DATE OF SERVICE: 08/26/2018 REQUESTING PHYSICIAN: Mily Jimenes MD INDICATION FOR CONSULTATION: Pneumonia. HISTORY OF PRESENT ILLNESS: This is a 73-year-old gentleman. Past medical history is as mentioned below. This does include a history of chronic obstructive pulmonary disease. The patient is on long-term oxygen therapy. The patient also has a history of obstructive sleep apnea and has been recommended CPAP at night. The patient says he does have a CPAP; however, he has difficulties with it and in fact does not use it. He does have a history of coronary artery disease as well, has had a history of arrhythmias. He says that he is on Eliquis at home. He is not fully aware of the reason he is on Eliquis. There is mention of atrial fibrillation on the chart. The patient also has had significant ventricular arrhythmias including he still continues to have multiple premature ventricular contractions and has had bigeminy ventricular in the past. The patient was only recently admitted to this hospital towards the end of June. The patient at that time was reported to be in congestive heart failure and was reported to be fluid overloaded despite the fact that his left ventricular ejection fraction was normal. The patient also did have significant right lower lobe infiltrate and pleural effusion. The patient received broad-spectrum antibiotics including but not limited to Zithromax as well as cefdinir. The patient is reported to have had a marked improvement subsequently and had returned close to his baseline; however, then quickly started to deteriorate again. He says that for the last several days prior to admission, he has been getting increasing shortness of breath. He has also been coughing. He is bringing up blood mixed with yellow sputum. He says at times he had chest pain on the left side associated with respiration and coughing. He does not report runny nose or sore throat. There is, in fact at this time, no increase in swelling of lower extremities or calf pain. He also did not report a fever at home. He currently is not having heartburn. REVIEW OF SYSTEMS: He does have disturbed sleep at night as well as sleepiness during the day. These complaints remain at baseline. He has occasional joint pain, which remains at baseline. He does have a history of varicose veins. He does not report any urinary complaints such as change in bowel habits or abdominal pain. I asked him a total of 14 questions for review of systems, [place] [address] CONSULTATION Name: LYDIA DAY Room: [address] IN ..#: [id number] Admission: 08/25/18 Attend Phys: Jamey Green Discharge: Date of : 41 Report #: [id number] answered to the negative except as mentioned above. PAST MEDICAL HISTORY: Chronic obstructive pulmonary disease, on long-term oxygen therapy at 3 liters, I do not have previous pulmonary function tests available at this time, he does not use prednisone senior care; obstructive sleep apnea, has been recommended CPAP, which he does have at home; however, he has been noncompliant; coronary artery disease, the patient has had coronary artery bypass grafting in the past, his left ventricular ejection fraction is normal without elevation in right heart pressures on the last echo, there is mild aortic stenosis noted; he is reported to have had congestive heart failure with fluid overload in June likely secondary to diastolic dysfunction and aortic stenosis may have contributed, also note that he has a history of arrhythmias, he has had significant ventricular arrhythmias including bigeminy and usually has multiple premature ventricular contractions, he is on Eliquis and is reported to have had an irregular heartbeat, it appears likely that he has a previous history of atrial fibrillation; also history of hypertension and hyperlipidemia. SOCIAL HISTORY: Extensive history of smoking in the past, has now discontinued; still works at a factory. No known history of heavy alcohol use or illegal drug use. MEDICATIONS: Current medication list in [facility] reviewed; home medication list in [facility] reviewed; also see discussion above. ALLERGIES: No known drug allergies. FAMILY HISTORY: Heart disease. PHYSICAL EXAMINATION: GENERAL: He is alert, awake, and oriented. He is on 4 liters nasal cannula. He does not appear to be in any distress at this time. He reports that he is better than yesterday. VITAL SIGNS: He has a pulse of 98, irregular. There are also multiple premature ventricular contractions on the monitor. His blood pressure is 132/63. He is last noted to be saturating 92% on 4 liters. His respiratory rate is mildly elevated to 22. He is afebrile with a temperature of 36.4. He had elevation in temperature up to 37.2 yesterday. HEENT: Head is normocephalic and atraumatic. Pupils are equal and reactive. There is no throat erythema. Mucous membranes are moist. NECK: Does not show raised JVP, asymmetry, mass, or lymph nodes. CHEST: Symmetrical expansion on inspection and palpation. On auscultation, breath sounds are bilaterally equal. Expirations are prolonged. I do hear expiratory wheezes. Breath sounds are diminished at the left lung base. HEART: Irregular. There is a soft systolic murmur. ABDOMEN: Soft and nontender. [address] [address] CONSULTATION Name: LYDIA DAY Room: [address] IN [facility]#: [id number] Admission: 08/25/18 Attend Phys: Jamey Green Discharge: Date of : 41 Report #: [id number] EXTREMITIES: Lower extremities show no edema and no calf tenderness. There are some varicose veins noted. SKIN: Dry and intact. NEUROLOGIC: Moves all extremities bilaterally equally and spontaneously with no focal deficit identified. DIAGNOSTIC STUDIES: The patient's lab works including CBC as well as chemistries are in [facility], reviewed. Coagulation studies also in [facility], reviewed. CTA chest films as well as report are reviewed and compared with the patient's previous chest x-rays. The patient's chest x-rays are also reviewed and compared with previous chest x-rays. ASSESSMENT AND PLAN: 1. Wrgyx-tj-uqdqevq hypoxemic respiratory failure. It appears the patient has developed pneumonia at the left lung base; interestingly, just had pneumonia on the right side about a month ago, which has now cleared. He also does appear to be in chronic obstructive pulmonary disease exacerbation. This appears to be the etiology of decompensation of his respiratory failure. 2. Pulmonary infiltrates/left lower lobe/lingular pneumonia. Note that the patient recently received broad-spectrum antibiotics including cefdinir as well as Zithromax and that he recently had a right middle/lower lobe pneumonia, which has now cleared. Considering this, I agree with broad-spectrum antibiotic coverage as currently prescribed. In particular, I agree with continuing with coverage for staph including methicillin-resistant Staphylococcus aureus. I will go ahead and order more cultures and serologies. Considering the patient's history, the 2 organisms that need to be considered as possible etiologies are Staphylococcus aureus or pseudomonas, but pseudomonas appears to be less likely, but staph does need to be covered. 3. Hemoptysis/left-sided pleural effusion. Hemoptysis is secondary to pneumonia. Note that the patient is on Eliquis. I feel that in the short run it will be low risk to hold anticoagulation and therefore, I recommended that we hold Eliquis and I recommended that unless otherwise ordered, this be resumed Tuesday. If the patient's hemoptysis subsides, then in that case, bridging with heparin or Lovenox in the meantime can be considered later; however, I did not order the same at this time. I would suggest reevaluating Tuesday as to whether there is an indication to tap the left-sided pleural effusion. 4. Chronic obstructive pulmonary disease exacerbation. Considering the patient is having significant arrhythmias, I switched him over to ipratropium and Xopenex. He does appear to be bronchospastic. For now, I recommend maintaining the current dose of Solu-Medrol until his bronchospasm improves. I will go ahead and add Singulair as well. If the patient's arrhythmia is improved, then he certainly could be switched back to DuoNeb later. 5. Obstructive sleep apnea. Unfortunately, the patient is not able to tolerate CPAP. We would encourage the same later if he is able to. 6. History of coronary artery disease/atrial as well as ventricular [facility] [address] [place] [address] CONSULTATION Name: LYDIA DAY Room: [facility] IN M.R.#: [id number] Admission: 08/25/18 Attend Phys: Jamey Green Discharge: Date of : 41 Report #: [id number] arrhythmias. See discussion above. 7. Clostridium difficile prophylaxis. I will go ahead and add Florastor. Thanks for this consultation. <ELECTRONICALLY SIGNED> By: Miguel A Montes MD 08/28/18 0838 1151 Vinh Keith MD /nt
--- NOTE | 2018-08-28 14:40 | EKG ---
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1945 Requested By: Rao Worley Order Number: [id number] Carlos MD: Fer Davis Measurements Intervals [place] Rate: 102 P: [place]: QRS: -45 QRSD: 98 T: 84 QT: 371 QTc: 484 Interpretive Statements Atrial fibrillation Ventricular premature complex Left anterior fascicular block Delayed R-wave progression likely due to left anterior fascicular block Compared to ECG 08/25/2018 10:09:17 Left anterior fascicular block now present Myocardial infarct finding now present Left ventricular hypertrophy no longer present Early repolarization no longer present Electronically Signed On 08-28-2018 14:40:42 CDT by Fer Davis [email or web address] <ELECTRONICALLY SIGNED> By: Fer Davis MD, [facility] 08/28/18 1440 19 19 Fer Davis MD, [facility] /EPI
[2018-08-29 03:46] VITALS: BP 109/50
[2018-08-29 04:53] LABS: CALCIUM 9.1 mg/dL (8.5-10.1); CREATININE 1.3 mg/dL (0.6-1.3); MAGNESIUM 2.1 mg/dL (1.8-2.4); POTASSIUM 4.6 mmol/L (3.5-5.1)
[2018-08-29 05:30] LABS: HEMOGLOBIN 13.1 gm/dL (14.0-18.0); MCH 30.2 pg (26.0-34.0); MCHC 32.8 g/dL (28.0-37.0); MCV 92.4 fL (80.0-100.0); MPV 8.2 fl. (7.2-11.1); NUCLEATED RBCS 0 /100WBC; RBC 4.33 mil/uL (4.50-6.00); RDW-CV 14.1 % (10.5-14.5); WBC 24.2 thou/uL (4.0-11.0)
[2018-08-29 05:33] LABS: PLATELET COUNT* 606 thou/uL (150-400)
[2018-08-29 05:57] LABS: ABSOLUTE LYMPHOCYTES 1.2 thou/uL (0.8-5.3); ABSOLUTE MONOCYTES 0.7 thou/uL (0.0-1.2); ABSOLUTE NEUTROPHILS 22.3 thou/uL (1.6-8.1); ANISOCYTOSIS 1+; PLATELET ESTIMATE INCREASED; POIKILOCYTOSIS 1+
[2018-08-29 09:29] VITALS: BP 111/51
[2018-08-29 11:45] VITALS: BP 145/61
[2018-08-29 16:33] VITALS: BP 152/70
--- NOTE | 2018-08-29 18:38 | 2DMMODE ---
[address] [address] 2 D/M-MODE ECHOCARDIOGRAM Name: LYDIA DAY Room: [address] ADM IN [facility]#: [id number] Admission: 08/25/18 Attend Phys: Mily Jimenes Discharge: Date of : 41 Date of Service: 08/29/18 1838 Report #: [id number] THIS REPORT FOR: //name// APPROVED REPORT Study performed: 08/29/2018 16:03:55 EXAM: Limited 2D Echocardiogram Patient Location: In-Patient Room #: [facility] Status: routine BSA: 2.09 HR: 74 bpm BP: 145/61 mmHg Rhythm: Atrial Fibrillation Indications COPD Atrial Fibrillation Dyspnea Left Ventricle The left ventricle is normal size. There is normal LV segmental wall motion. There is normal left ventricular wall thickness. The left ventricular systolic function is normal. LVEF is 55-60%. Right Ventricle The right ventricle is normal size. The right ventricular systolic function is normal. Atria The left atrium size is normal. The right atrium size is normal. Aortic Valve Mild aortic valve sclerosis. Mitral Valve The mitral valve is normal in structure. Tricuspid Valve The tricuspid valve is normal in structure. Pulmonic Valve The pulmonary valve is normal in structure. [place] [address] [address] 2 D/M-MODE ECHOCARDIOGRAM Name: LYDIA DAY Room: [address] IN M.R.#: [id number] Admission: 08/25/18 Attend Phys: Mily Jimenes Discharge: Date of : 41 Date of Service: 08/29/181837 Report #: [id number] Great Vessels The aortic root is normal in size. IVC is normal in size and collapses >50% with inspiration. Pericardium There is no pericardial effusion. <Conclusion> The left ventricle is normal size. There is normal left ventricular wall thickness. The left ventricular systolic function is normal. LVEF is 55-60%. There is normal LV segmental wall motion. Mild aortic valve sclerosis. IVC is normal in size and collapses >50% with inspiration. There is no pericardial effusion. <ELECTRONICALLY SIGNED> By: Fer Davis MD, FACC 08/29/181837 37 37 Fer Davis MD, FACC /INF
[2018-08-29 19:50] VITALS: BP 109/55
[2018-08-30] VITALS: BP 115/61
[2018-08-30 03:50] VITALS: BP 108/48
[2018-08-30 05:22] LABS: ABSOLUTE LYMPHOCYTES 1.2 thou/uL (0.8-5.3); ABSOLUTE MONOCYTES 0.9 thou/uL (0.0-1.2); ABSOLUTE NEUTROPHILS 18.8 thou/uL (1.6-8.1); BASOPHILS 0.1 %; HEMATOCRIT 37.6 % (42.0-52.0); HEMOGLOBIN 12.6 gm/dL (14.0-18.0); LYMPHOCYTES 5.7 %; MCH 30.7 pg (26.0-34.0); MCHC 33.5 g/dL (28.0-37.0); MCV 91.4 fL (80.0-100.0); MONOCYTES 4.4 %; MPV 8.1 fl. (7.2-11.1); NUCLEATED RBCS 0 /100WBC; PLATELET COUNT* 556 thou/uL (150-400); POLYS 89.8 %; RBC 4.11 mil/uL (4.50-6.00); RDW-CV 14.1 % (10.5-14.5); WBC 20.9 thou/uL (4.0-11.0)
[2018-08-30 05:27] LABS: CALCIUM 8.8 mg/dL (8.5-10.1); CREATININE 1.2 mg/dL (0.6-1.3); MAGNESIUM 2.1 mg/dL (1.8-2.4); POTASSIUM 4.2 mmol/L (3.5-5.1)
[2018-08-30 08:00] VITALS: BP 134/69
[2018-08-30 12:00] VITALS: BP 114/68
[2018-08-30 21:20] VITALS: BP 126/66
[2018-08-31] VITALS: BP 128/56
[2018-08-31 03:50] VITALS: BP 129/47
[2018-08-31 04:41] LABS: ABSOLUTE EOSINOPHILS 0.1 thou/uL (0.0-0.7); ABSOLUTE LYMPHOCYTES 1.7 thou/uL (0.8-5.3); ABSOLUTE MONOCYTES 1.4 thou/uL (0.0-1.2); ABSOLUTE NEUTROPHILS 19.7 thou/uL (1.6-8.1); BASOPHILS 0.1 %; EOSINOPHILS 0.5 %; HEMATOCRIT 38.2 % (42.0-52.0); HEMOGLOBIN 12.2 gm/dL (14.0-18.0); LYMPHOCYTES 7.4 %; MCH 29.5 pg (26.0-34.0); MCV 92.3 fL (80.0-100.0); NUCLEATED RBCS 0 /100WBC; PLATELET COUNT* 551 thou/uL (150-400); RBC 4.14 mil/uL (4.50-6.00); RDW-CV 14.1 % (10.5-14.5); WBC 22.9 thou/uL (4.0-11.0)
[2018-08-31 04:48] LABS: CALCIUM 8.8 mg/dL (8.5-10.1); CREATININE 1.1 mg/dL (0.6-1.3); POTASSIUM 4.5 mmol/L (3.5-5.1)
[2018-08-31 08:00] VITALS: BP 159/74
[2018-08-31 11:15] VITALS: BP 111/66
[2018-08-31] MEDS ORDERED: ZYVOX600 MG PO (13:27)
[2018-08-31] MEDS ORDERED: LEVAQUIN 750 M750 MG PO (13:29)
[2018-08-31] MEDS ORDERED: LASIX 40 MG TAB40 M1 PO (13:29)
[2018-08-31] MEDS ORDERED: PREDNISONE 10 M10 MG PO (13:31)
[2018-08-31] MEDS ORDERED: PROTONIX40 M1 PO (13:31)
[2018-08-31] MEDS ORDERED: ADVAIR HFA 230M12 GM INH (13:32)
[2018-08-31 14:25] VITALS: BP 111/66
== END 2018-08-31 15:05 | disposition home health service (06) | DRG 177 ==
LOC: M.ERS 09:54 → M.2W 11:26 → M.TBA-ER 11:26 → M.2W 14:50
PROVIDERS: Emergency Medicine; Family Medicine; Internal Medicine; Internal Medicine Critical Care Medicine; ADMIT Internal Medicine
DX: J15.6 Pneumonia due to other Gram-negative bacteria (principal); J96.21 Acute and chronic respiratory failure with hypoxia; I50.33 Acute on chronic diastolic (congestive) heart failure; J44.1 Chronic obstructive pulmonary disease with (acute) exacerbation; E44.0 Moderate protein-calorie malnutrition; D68.59 Other primary thrombophilia; R04.2 Hemoptysis; I25.10 Atherosclerotic heart disease of native coronary artery without angina pectoris; E78.5 Hyperlipidemia, unspecified; I11.0 Hypertensive heart disease with heart failure; J44.9 Chronic obstructive pulmonary disease, unspecified; G47.33 Obstructive sleep apnea (adult) (pediatric); I48.91 Unspecified atrial fibrillation; D72.829 Elevated white blood cell count, unspecified; Z79.82 Long term (current) use of aspirin; Z95.1 Presence of aortocoronary bypass graft; Z82.49 Family history of ischemic heart disease and other diseases of the circulatory system; Z87.891 Personal history of nicotine dependence; Z68.26 Body mass index [BMI] 26.0-26.9, adult; Z79.899 Other long term (current) drug therapy

== ENCOUNTER → 2019-03-20 | Outpatient (CLI) | payer OTHER ==
[~2019-03-20] MED LIST changes: +ADVAIR HFA 230M12 GM INH; +LEVAQUIN 750 M750 MG PO; +ZYVOX600 MG PO
[2019-03-20 14:10] LABS: CALCIUM 9.5 mg/dL (8.5-10.1); CREATININE 1.1 mg/dL (0.6-1.3); POTASSIUM 3.9 mmol/L (3.5-5.1)
== END ==
LOC: M.LAB 13:35
PROVIDERS: Registered Nurse
DX: I11.0 Hypertensive heart disease with heart failure (principal); I50.32 Chronic diastolic (congestive) heart failure